=== PATIENT | female | born 1960 | race Caucasian/White ===

== ENCOUNTER 2017-06-19 17:36 | Emergency (ER) | payer MEDICAID ==
[~2017-06-19] VITALS: Ht 162.6 cm; Wt 88.0 kg
[2017-06-19 17:36] VITALS: BP 126/87
== END 2017-06-19 18:25 | disposition left against medical advice (07) ==
LOC: ED 18:19
DX: H53.8 Other visual disturbances (principal); R42 Dizziness and giddiness; Z53.21 Procedure and treatment not carried out due to patient leaving prior to being seen by health care provider
CPT/HCPCS: 99283